=== PATIENT | female | born 1965 | race Two or more races ===

== ENCOUNTER 2024-05-31 14:10 | Emergency (ER) | payer BC, OTHER ==
[2024-05-31 14:26] VITALS: BP 174/97; PULSE 83; RESP 16; TEMP 98.6; BMI 22.9
[2024-06-01 01:27] LABS: HIV INTERPRETATION NEGATIVE (NEGATIVE)
== END 2024-05-31 16:39 | disposition home or self-care (01) ==
LOC: FER 14:10
DX: M79.645 Pain in left finger(s) (principal)
CPT/HCPCS: 36415; 73130-TC-LT-FY; 86803; 87389; 99284-25